=== PATIENT | female | born 1935 ===

== ENCOUNTER 2021-11-17 05:40 | Day surgery (SDC) | payer OTHER ==
[~2021-11-17] VITALS: Ht 154.9 cm; Wt 65.8 kg
[~2021-11-17 05:40] MED LIST: LIPITOR40 MG PO; VASOTEC20 MG PO
== END 2021-11-17 17:10 | disposition home or self-care (01) ==
LOC: CIR.AMB 05:40
PROVIDERS: ATTEND Orthopaedic Surgery Hand Surgery
DX: S52.531A Colles' fracture of right radius, initial encounter for closed fracture (principal); Z20.822 Contact with and (suspected) exposure to COVID-19; Z88.6 Allergy status to analgesic agent; I10 Essential (primary) hypertension; E78.5 Hyperlipidemia, unspecified
CPT/HCPCS: 25609; 25118; 25280; L8699